=== PATIENT | male | born 1965 | race Caucasian/White ===

== ENCOUNTER → 2020-05-15 | Outpatient (CLI) | payer OTHER ==
--- NOTE | 2020-05-15 15:08 | MR ---
EXAMINATION TYPE: MR lumbar spine wo con DATE OF EXAM: 05/15/2020 2:49 PM COMPARISON: NONE HISTORY: Pain Multiplanar, MultiSpin echo imaging of the lumbar spine was performed. There is a transitional verteb ral segment with probable partial lumbarization of S1. Prior to any scheduled intervention radiograph ic correlation is advised. L1-L2: Mild to moderate degenerative disc disease. Minimal posterior disc bulge without herniation pr otrusion or central stenosis. Ventral spondylosis. L2-L3: Moderate decreased signal ossified compatible degenerative disc disease. Posterior disc bulge with hypertrophy ligamentum flavum resulting in mild central stenosis. Mild bilateral foraminal encro achment. L3-L4: Mild disc desiccation mild posterior disc bulge. No herniation or central stenosis. Foramina a re patent. L4-L5: Mild disc desiccation mild posterior disc bulge. No herniation or central stenosis. Foramina a re patent. L5 -S1: Moderate disc desiccation. Grade 1 anterolisthesis L4 and L5 of 4 mm. Posterior disc bulge wi thout distortion of the thecal sac. Left lateral recess stenosis and bilateral foraminal encroachment left greater than right. Rudimentary S1-S2 disc. Lumbar segments are intact. No paraspinal masses are identified. Conus medullaris has a normal appe arance. IMPRESSION: 1. Multilevel degenerative disc disease. 2. Mild central stenosis at L2-3. See above.
== END | disposition home or self-care (01) ==
LOC: RADMRIMAIN 13:55
PROVIDERS: ATTEND Physician Assistant
DX: M48.061 Spinal stenosis, lumbar region without neurogenic claudication (principal); M51.16 Intervertebral disc disorders with radiculopathy, lumbar region
CPT/HCPCS: 72148

== ENCOUNTER → 2025-02-12 | Outpatient (CLI) | payer OTHER ==
--- NOTE | 2025-02-12 11:14 | CT ---
EXAMINATION TYPE: CT soft tissue neck w con DATE OF EXAM: 02/12/2025 9:53 AM COMPARISON: None. CLINICAL INDICATION: Male, 60 years old with history of J35.8 OTHER CHRONIC DISEASES OF TONSILS AND A DENOI; PHH, Possible lump inside throat, adenoid problems. TECHNIQUE: Standard enhanced CT of the neck. Axial sections with coronal and sagittal reformats were obtained. Contrast used:95 mL of Isovue [address] DLP: 599 mGycm, Automated exposure control for dose reduction was used. FINDINGS: Small 7 mm mucosal retention cyst or polyp anterior right maxillary sinus. Otherwise, paranasal sinus es and mastoid air cells well pneumatized. Visualized intracranial structures and orbits and globes appear clear. Nasopharynx appears clear. Asymmetric enlargement in the region of the left palatine tonsils measuring 3.6 x 2.2 cm/direct visua lization is advised to exclude a worrisome mass. Oropharynx otherwise appears clear. Epiglottis and prevertebral soft tissues are satisfactory. Glottic and subglottic structures as well as the tracheal column and visualized upper lungs are clear . The thyroid gland, submandibular glands, and parotid glands appear satisfactory. Scattered nonenlarged lymph nodes along both sides of the neck. Some of these are borderline sized me asuring up to 1.0 cm short axis left station 2A. No cervical adenopathy by size criteria. Asymmetric degenerative change right sternoclavicular joint. Moderate spondylotic change mid to lower cervical spine. IMPRESSION: 1. Soft tissue enlargement measuring 3.6 x 2.2 cm in the region of the left palatine tonsil. Direct v isualization to exclude a worrisome mass. 2. No suspicious cervical adenopathy. [facility], , 02/12/2025 11:12 AM
== END | disposition home or self-care (01) ==
LOC: RADCTMAIN 09:14
PROVIDERS: ATTEND Otolaryngology Facial Plastic Surgery
DX: J35.1 Hypertrophy of tonsils (principal); J35.8 Other chronic diseases of tonsils and adenoids
CPT/HCPCS: 70491; Q9967

== ENCOUNTER → 2025-03-27 | Outpatient (CLI) | payer BC ==
--- NOTE | 2025-03-29 17:59 | PE ---
EXAMINATION TYPE: PET CT fusion skull to thigh DATE OF EXAM: 03/27/2025 CLINICAL INDICATION:Male, 60 years old with history of C83.31 B CELL LYMPHOMA; TECHNIQUE: Following the intravenous administration of 12.33 mCi of F-18 FDG, whole body images are performed from the skull base to the midthigh. Images are reviewed on the computer in the coronal, axial, and sagittal planes. Reconstructed rotating images are created on independent workstation and reviewed on the computer. A non-contrast CT is performed in conjunction with the PET scan. Glucose level 103 mg/dL CT DLP: 1668.9 mGycm, Automated exposure control for dose reduction was used. COMPARISON: CT 02/12/2025, PET/CT None, MRI: None FINDINGS: Mediastinal SUV mean is 2.6. Hepatic parenchyma SUV mean is 3.2. SKULL BASE AND NECK: Redemonstration of a single enlarged left 1.8 cm level IIA lymph node. Previously measured 1.[address] Demonstrates FDG activity with a maximum SUV of 13.4. CHEST, MEDIASTINUM, AND HILAR REGION: No suspicious radiotracer activity. ABDOMEN AND PELVIS: No suspicious radiotracer activity. MUSCULOSKELETAL STRUCTURES: No suspicious radiotracer activity. OTHER CT: Significant improvement in previously demonstrated enlarged left palatine tonsil with symme tric appearance of both palatine tonsils now. Mild cardiomegaly. Mild bilateral gynecomastia. Elevati on of the right hemidiaphragm. Gallbladder is surgically absent. Degenerative changes of the right st ernoclavicular joint. Right shoulder arthropathy. The level degenerative changes of the spine. Left r enal sinus cysts. Osteoarthritic change of the right hip. Post surgical changes from a left hip arthr oplasty. Couple pelvic phleboliths. Degenerative changes of the pubic symphysis. IMPRESSION: Single left level IIA FDG avid lymph node corresponding to known lymphoma. No other suspicious FDG av id lymph nodes identified to suggest metastasis. [facility], , 03/29/2025 5:57 PM
== END | disposition home or self-care (01) ==
LOC: RADPETMAIN 06:52
PROVIDERS: ATTEND Internal Medicine
DX: C83.31 Diffuse large B-cell lymphoma, lymph nodes of head, face, and neck (principal)
CPT/HCPCS: 78815; A9552

== ENCOUNTER 2025-04-10 10:28 | Day surgery (SDC) | payer BC ==
[2025-04-07 16:05] VITALS: BMI 30.5
[~2025-04-10 10:28] MED LIST: HYDROmorphone 0.5 MG/0.5 ML SYRINGE IVP PRN; Pre Op ABX Message 1 EACH MISC MISCELLANE ONE
[2025-04-10] MEDS: IV FLUID CONTINUATION 1,000 ML IV ONE (10:46)
[2025-04-10 10:51] VITALS: TEMP 98
[2025-04-10] MEDS: DEXAMETHASONE SOD PHOSPHATE 4 MG/ML 1 ML VIAL IV ONE (11:23)
[2025-04-10] MEDS: ONDANSETRON 4 MG/2 ML VIAL IVP ONE (11:23)
[2025-04-10] MEDS: LACTATED RINGERS 1,000 ML IV SCH (11:24)
[2025-04-10] MEDS ORDERED: KETAMINE HCL IN 0.9 % NACL 50 MG/5 ML SYRINGE ONE (12:46)
[2025-04-10] MEDS ORDERED: fentaNYL (PF) 50 MCG/ML 2 ML AMP ONE (12:46)
[2025-04-10] MEDS ORDERED: PROPOFOL 10 MG/ML 20 ML VIAL IV ONE (12:46)
[2025-04-10] MEDS ORDERED: MIDAZOLAM 2 MG/2 ML VIAL ONE (12:46)
[2025-04-10] MEDS: HEPARIN SODIUM,PORCINE 100 UNIT/ML 5 ML VIAL IV ONE (13:17)
[2025-04-10] MEDS: BUPIVACAINE (PF) 0.25% 30 ML VIAL SQ ONE (13:17)
--- NOTE | 2025-04-10 13:58 | P.PCN ---
Date of Procedure: 04/10/25 Preoperative Diagnosis: Lymphoma Postoperative Diagnosis: Lymphoma Procedure(s) Performed: Mediport with fluoroscopy Anesthesia: MAC Surgeon: Efe Martin Pathology: none sent Condition: stable Disposition: same day Indications for Procedure: 60-year-old male with recent diagnosis of lymphoma. Plan is for chemotherapy induction and plan is for Mediport placement. Risks, benefits and alternatives including risk of bleeding and pneumothorax were discussed in depth with the patient. He has provided consent prior to attending the operating suite. Operative Findings: Appropriate flush and withdrawal from Mediport site Description of Procedure: Patient was brought to the operating suite and placed in supine position on the operating table. Sedation was provided by anesthesia and the patient underwent endotracheal intubation. Patient was then prepped and draped in regular sterile fashion. Local anesthetic was administered and the right subclavian vein was entered on first attempt. Dark, nonpulsatile blood was withdrawn. Guidewire was then placed and location was confirmed under fluoroscopic guidance. At this point local anesthetic was administered to create the pocket for the port. Incision was made and dissection was carried to the prepectoralis fascia. Dissection was carried to free up space for the port. At this point a small incision was made at the guidewire insertion site and a tunnel was created between this guidewire site and the pocket and catheter was placed. Dilator sheath was then placed over the guidewire under fluoroscopic guidance and catheter was then placed. Catheter was noted to be in appropriate position and was connected to the port and port was placed in the pocket. Appropriate flush and withdrawal was noted from the port site. The port was then secured to the prepectoralis fascia in 2 separate locations. Fluoroscopic guidance confirmed location with no kinks in the catheter. Heparin lock was placed. The wound was then closed in layers with 3-0 Vicryl and 4-0 Vicryl subcuticular suture. Sterile dressing was applied. The patient was then taken to postanesthesia care unit in stable condition with pending chest x-ray.
--- NOTE | 2025-04-10 14:10 | FL ---
EXAMINATION TYPE: FL guided central line placemt DATE OF EXAM: 04/10/2025 1:56 PM COMPARISON: Pre Operative Images if available both CT/MRI or plain film CLINICAL INDICATION: Male, 60 years old with history of Port-A-Cath Insertion; TECHNIQUE: FL guided central line placemt, multiple fluoroscopic images provided for procedure. DAP: 0.40406 mGym2 Gycm2 uGym2 cGycm2 or equivalent. FINDINGS: Fluoroscopic imaging for Port-A-Cath insertion no evidence for pneumothorax. Multilevel degeneration changes of the spine. IMPRESSION: 1. No evidence for intraoperative complication. 2. Please see the operative/procedural note for further details. [facility], , 04/10/2025 2:08 PM
--- NOTE | 2025-04-10 14:13 | XR ---
EXAMINATION TYPE: XR chest 1V portable DATE OF EXAM: 04/10/2025 2:04 PM COMPARISON: Chest radiographs from CLINICAL INDICATION: Male, 60 years old with history of line; PHH TECHNIQUE: XR chest 1V portable Frontal view of the chest. FINDINGS: Lungs/Pleura: There is no evidence of pleural effusion, focal consolidation, or pneumothorax. Pulmonary vascularity: Unremarkable. Heart/mediastinum: Cardiomediastinal silhouette is unremarkable. Musculoskeletal: No acute osseous pathology. Other findings: None Lines/Tubes: [id number]-[id number] projecting over the right hemithorax with distal tip at the cavoatrial junction. IMPRESSION: No acute cardiopulmonary disease/process. [facility], , 04/10/2025 2:11 PM
[2025-04-10 14:23] VITALS: BP 123/72; PULSE 84; RESP 14
== END 2025-04-10 14:31 | disposition home or self-care (01) ==
LOC: OR 10:28
PROVIDERS: ATTEND Surgery
DX: C83.30 Diffuse large B-cell lymphoma, unspecified site (principal); Z45.2 Encounter for adjustment and management of vascular access device
CPT/HCPCS: 77001; 71045; 36561; J1642; J1100; J2405; J0665